=== PATIENT | male | born 1950 | race Caucasian/White ===

== ENCOUNTER 2018-11-03 17:29 | Emergency (ER) | payer OTHER ==
[~2018-11-03] VITALS: Ht 190.5 cm; Wt 110.0 kg
[2018-11-03 17:34] VITALS: BP 138/99; TEMP 97.8
[2018-11-03 19:06] VITALS: PULSE 76
[2018-11-03 19:08] LABS: HEMOGLOBIN 15.1 g/dl (13.5-18.0); MEAN CELL VOLUME 86 fl (80.0-100.0); MEAN CORPUSCULAR HEMOGLOBIN 28 pg (27.0-31.0); MEAN CORPUSCULAR HGB CONC 32 g/dl (33.0-37.0); MEAN PLATELET VOLUME 10.1 fl (7.4-10.4); PLATELET COUNT 260 K/mm3 (130-400); REDCELL DISTRIBUTION WIDTH-CV 14.9 % (11.5-14.5)
[2018-11-03 19:17] LABS: ALBUMIN 4.3 gm/dL (3.5-5.0); BILIRUBIN,TOTAL 0.5 mg/dL (0.0-1.0); C-REACTIVE PROTEIN 1.5 mg/dL (0.0-0.9); CALCIUM 9.3 mg/dL (8.4-10.2); CREATININE, serum 1.14 (0.66-1.25); POTASSIUM 4.8 mmol/L (3.4-5.0); TOTAL PROTEIN 8.6 gm/dL (6.4-8.2)
[2018-11-03 19:58] LABS: BAND 3 % (0-10); EOSINOPHIL 1 % (0-4); LYMPHOCYTE 37 % (20.0-51.0); NEUTROPHILS 58 % (42.0-75.2); PLATELET ESTIMATE NORMAL (NORMAL)
== END 2018-11-03 19:15 | disposition home or self-care (01) ==
LOC: COL.ER 17:29
PROVIDERS: Nurse Practitioner
DX: H53.8 Other visual disturbances (principal); H57.89 Other specified disorders of eye and adnexa; E11.9 Type 2 diabetes mellitus without complications; I10 Essential (primary) hypertension; Z79.84 Long term (current) use of oral hypoglycemic drugs